=== PATIENT | male | born 1995 | race Caucasian/White ===

== ENCOUNTER 2024-02-12 14:29 | Emergency (ER) | payer SELFPAY ==
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
[2024-02-12] MEDS: tranexamic acid 1,000 MG/100 ML PREMIX 600 MG IV (14:56)
[2024-02-12] MEDS: morphine 4 mg/mL SDV 1 mL 2 MG IVP (14:56)
[2024-02-12] MEDS: ondansetron 2 mg/ML SDV 2 mL 4 MG IVP (14:56)
[2024-02-12 15:00] VITALS: BP 136/76; PULSE 92; O2SAT 99
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
[2024-02-12 15:20] LABS: Basophils % 0.6 %; Eosinophils # 0.1 10^3/uL (0.0-0.8); Eosinophils % 1.3 %; Hematocrit 42.1 % (37-53); Lymphocytes # 2.4 10^3/uL (0.8-4.8); Lymphocytes % 33.4 %; Mean Corpuscular HGB Conc 35.9 g/dL (30-55); Mean Corpuscular Hemoglobin 30.5 pg (27-33); Mean Corpuscular Volume 85.1 fl (82-101); Mean Platelet Volume 12.9 fL (7.4-10.4); Monocytes # 0.6 10^3/uL (0.2-0.9); Monocytes % 8.1 %; Neutrophils # 3.97 10^3/uL (1.8-7.7); Neutrophils % 56.5 %; Nucleated Red Blood Cells % 0 %; Platelet Count 169 10^3/cmm (157-399); Red Blood Count 4.95 10^6/uL (3.85-5.65); Red Cell Distribution Width 11.9 % (12.1-15.1); White Blood Count 7.03 10^3/uL (3.29-11.43)
[2024-02-12] MEDS: iohexol 350 mg/mL 500 mL Btl (per mL) IV (15:23)
[2024-02-12] MEDS: sodium chloride 0.9% 1,000 ML 999 ML IV (15:26)
[2024-02-12] MEDS: ceFAZolin 1,000 MG in sodium chloride 0.9% (plus) 50 ML 100 MG IV (15:36)
[2024-02-12 15:44] LABS: Alanine Aminotransferase 26 U/L (0-41); Albumin Level 4.4 g/dL (3.5-5.2); Alkaline Phosphatase 52 U/L (40-130); Anion Gap 16.5 (5-19); Aspartate Amino Transferase 20 U/L (0-40); Blood Urea Nitrogen 15 mg/dL (6-20); Calcium 9.3 mg/dL (8.5-10.5); Carbon Dioxide 24 mmol/L (22-29); Chloride 103 mmol/L (98-107); Globulin 2.9 g/dL (1.3-4.6); Glomerular Filtration Rate 90.3 mL/min (90-130); Glucose 95 mg/dL (65-115); Osmolality Calculated 291 mOsm/kg (285-295); Potassium 3.5 mmol/L (3.5-5.1); Sodium 140 mmol/L (136-145); Total Bilirubin 0.3 mg/dL (0.15-1.2); Total Protein 7.3 g/dL (6.6-8.7)
[2024-02-12 16:00] VITALS: BP 128/74; PULSE 89; O2SAT 99
[2024-02-12] MEDS: lidocaine-epi 1% 20 mL INJ INJECTION (16:05)
[2024-02-12 17:25] VITALS: BP 135/71; PULSE 86; O2SAT 98
== END 2024-02-12 18:09 | disposition home or self-care (01) ==
PROVIDERS: Emergency Provider Family Medicine; PCP Family Medicine
DX: S01.81XA Laceration without foreign body of other part of head, initial encounter (principal); S01.111A Laceration without foreign body of right eyelid and periocular area, initial encounter; V89.2XXA Person injured in unspecified motor-vehicle accident, traffic, initial encounter
CPT/HCPCS: 12011; 12056; 36415; 70450; 70486; 71260; 72125; 74177; 80053; 85025; 86850; 86900; 96374; 96375; 99285; 99291; 99292; J0690; J2270; J2405; J7030; Q9967